=== PATIENT | female | born 2000 | race Two or more races ===

== ENCOUNTER 2024-12-28 07:18 | Outpatient (CLI) | payer OTHER | END 2024-12-28 07:19 | disposition home or self-care (01) | LOC: PRENATAL 07:18 | PROVIDERS: ATTEND Obstetrics & Gynecology Maternal & Fetal Medicine | DX: O36.80X0 Pregnancy with inconclusive fetal viability, not applicable or unspecified (principal); Z36.82 Encounter for antenatal screening for nuchal translucency; Z14.8 Genetic carrier of other disease; Z3A.12 12 weeks gestation of pregnancy ==

== ENCOUNTER 2025-02-22 08:57 | Outpatient (CLI) | payer OTHER | END 2025-02-22 08:59 | disposition home or self-care (01) | LOC: PRENATAL 08:57 | PROVIDERS: ATTEND Obstetrics & Gynecology Maternal & Fetal Medicine | DX: O44.00 Complete placenta previa NOS or without hemorrhage, unspecified trimester (principal); O24.419 Gestational diabetes mellitus in pregnancy, unspecified control; Z3A.21 21 weeks gestation of pregnancy ==

== ENCOUNTER 2025-04-19 11:12 | Outpatient (CLI) | payer OTHER | END 2025-04-19 11:13 | disposition home or self-care (01) | LOC: PRENATAL 11:12 | PROVIDERS: ATTEND Obstetrics & Gynecology Maternal & Fetal Medicine | DX: O26.843 Uterine size-date discrepancy, third trimester (principal); O24.419 Gestational diabetes mellitus in pregnancy, unspecified control; Z3A.29 29 weeks gestation of pregnancy ==

== ENCOUNTER 2025-05-07 19:59 | Emergency (ER) | payer OTHER ==
[~2025-05-07] VITALS: Ht 175.3 cm; Wt 107.0 kg
[2025-05-07] MEDS ORDERED: PRENATAL + DHA1 EAC1 PO (21:06)
[2025-05-07] MEDS ORDERED: IPRATROPIUM BROMIDE 0.5 MG/2.5 ML AMPUL.NEB IH ONE (23:45)
[2025-05-07] MEDS ORDERED: 0.9 % SODIUM CHLORIDE 1,000 ML IV SCH (23:45)
[2025-05-07] MEDS ORDERED: ONDANSETRON HCL 4 MG in 0.9 % SODIUM CHLORIDE 50 ML IV ONE (23:45)
[2025-05-07] MEDS ORDERED: ACETAMINOPHEN 500 MG GEL..CAP PO ONE (23:45)
[2025-05-07] MEDS ORDERED: GUAIFENESIN 600 MG TABLET.SA PO ONE (23:45)
[2025-05-07] MEDS ORDERED: LEVALBUTEROL HCL 1.25 MG/3 ML SOLUTION IH ONE (23:45)
[2025-05-07] MEDS ORDERED: FAMOTIDINE/PF 20 MG in 0.9 % SODIUM CHLORIDE 8 ML IV PUSH ONE (23:45)
[2025-05-08] MEDS ORDERED: FAMOTIDINE/PF 20 MG/2 ML VIAL ONE (01:04)
[2025-05-08] MEDS ORDERED: ONDANSETRON HCL 2 MG/ML VIAL ONE (01:04)
[2025-05-08] MEDS ORDERED: ACETAMINOPHEN 500 MG GEL..CAP PO ONE (01:04)
[2025-05-08 02:22] LABS: BASO % 0.1 % (0.1-1.2); EOS # 0.00 (0.04-0.54); EOS % 0.0 % (0.7-7.0); LYMPH # 0.68 (1.18-3.74); LYMPH % 7.7 % (19.3-53.1); MEAN PLATELET VOLUME 10.10 fl (9.4-12.4); MONO # 0.56 (0.24-0.82); MONO % 6.3 % (4.7-12.5); NEUT # 7.54 (1.56-6.13); NEUT % 85.2 % (34.0-71.1); RED CELL DISTRIBUTION WIDTH 13.5 % (11.6-14.4)
[2025-05-08 02:26] LABS: INR 0.98
[2025-05-08 02:26] LABS: URINE APPEARANCE Cloudy; URINE BILIRRUBIN Negative (NEGATIVE); URINE BLOOD Negative; URINE COLOR Yellow; URINE EPITHELIAL CELLS 130.6 uL (0.0-38.8); URINE GLUCOSE Negative (NEGATIVE); URINE KETONE 15 (NEGATIVE); URINE LEUKOCYTE Large; URINE NITRATE Negative; URINE PROTEIN Negative (NEGATIVE); URINE RBC 6.7 uL (0.0-20.8); URINE UROBILINOGEN 0.2 E.U./dl; URINE WBC 333.7 uL (0.0-23.2)
[2025-05-08 02:28] LABS: URINE CAST 0.14 uL (0.0-1.40)
[2025-05-08 03:01] LABS: ALT/SGPT 28.0 U/L (12-78); AST/SGOT 31.0 U/L (15-37); BILIRUBIN TOTAL 0.19 mg/dL (0.3-1.2); BUN CREA RATIO 9.0 (7.0-25.0); CREATININE SERUM 0.54 mg/dL (0.55-1.02); GFR 138.7; GLOBULINA 3.8 G/DL (2.4-3.5); GLUCOSE FASTING 141.0 mg/dL (65-100); OSMOLALITY SERUM 275.0 MOSM/KG (275-295)
[2025-05-08 03:15] LABS: HCG QUANTITATIVE 2837.0 mUI/mL (1-3)
[2025-05-08 04:09] LABS: COVID-19 AG NEGATIVE (NEGATIVE)
== END 2025-05-08 06:04 | disposition home or self-care (01) ==
LOC: ER 20:00
PROVIDERS: General Practice
DX: O26.893 Other specified pregnancy related conditions, third trimester (principal); Z3A.30 30 weeks gestation of pregnancy; B34.9 Viral infection, unspecified; J10.1 Influenza due to other identified influenza virus with other respiratory manifestations; R10.9 Unspecified abdominal pain; R05.8 Other specified cough; R10.20 Pelvic and perineal pain unspecified side; Z20.822 Contact with and (suspected) exposure to COVID-19

== ENCOUNTER 2025-05-17 07:52 | Outpatient (CLI) | payer OTHER ==
[~2025-05-17 07:52] MED LIST: PRENATAL + DHA1 EAC1 PO
== END 2025-05-17 07:53 | disposition home or self-care (01) ==
LOC: PRENATAL 07:52
PROVIDERS: ATTEND Obstetrics & Gynecology Maternal & Fetal Medicine
DX: O26.843 Uterine size-date discrepancy, third trimester (principal); O36.8130 Decreased fetal movements, third trimester, not applicable or unspecified; O24.419 Gestational diabetes mellitus in pregnancy, unspecified control; Z3A.33 33 weeks gestation of pregnancy